=== PATIENT | female | born 1965 | race Caucasian/White ===

== ENCOUNTER → 2017-02-09 | Outpatient (CLI) | payer BC | END | disposition home or self-care (01) | LOC: LABWHC1 09:12 | PROVIDERS: ATTEND Obstetrics & Gynecology | DX: E34.9 Endocrine disorder, unspecified (principal); Z13.220 Encounter for screening for lipoid disorders; Z13.29 Encounter for screening for other suspected endocrine disorder; Z13.21 Encounter for screening for nutritional disorder | CPT/HCPCS: 36415; 80061; 82306; 83001; 83002; 84439; 84443 ==

== ENCOUNTER → 2017-03-12 | Outpatient (CLI) | payer BC ==
--- NOTE | 2017-03-12 16:45 | US ---
EXAMINATION TYPE: US transvaginal DATE OF EXAM: 03/12/2017 COMPARISON: NONE CLINICAL HISTORY: 51-year-old female with N83.20 Ovarian Cysts. TECHNIQUE: Transvaginal (TV) Date of LMP: 02/20/2017 FINDINGS: Uterus: Anteverted measuring 6.7 x 3.4 x 4.4 cm. There is myometrial heterogeneity that could reflec t diffuse small fibroid change. Endometrial Stripe: 0.2 cm, thin, within normal limits. Right Ovary: 1.9 x 1.1 x 2.1 cm Left Ovary: 1.9 x 1.4 x 1.7 cm No dominant masses seen. There may be a tiny 4 mm cyst on the left. Trace pelvic free fluid anterior to the uterus. No evident adnexal abnormality. IMPRESSION: 1. Thin endometrial stripe (2 mm), appropriate for postmenopausal status. 2. Small, postmenopausal ovaries. Tiny 4 mm cyst on the left. 3. Trace pelvic free fluid.
== END | disposition home or self-care (01) ==
LOC: RADUSWWP 13:34
PROVIDERS: ATTEND Obstetrics & Gynecology
DX: N83.202 Unspecified ovarian cyst, left side (principal); N83.312 Acquired atrophy of left ovary; Z78.0 Asymptomatic menopausal state
CPT/HCPCS: 76830

== ENCOUNTER → 2017-03-28 | Outpatient (CLI) | payer BC ==
--- NOTE | 2017-03-29 09:43 | MM ---
Reason for exam: screening (asymptomatic). Last mammogram was performed 4 years and 8 months ago. History: Patient has history of other cancer at age 42. Family history of breast cancer in 2 maternal aunts at age 50 and breast cancer in paternal grandmother at age 50. Physical Findings: A clinical breast exam by your physician is recommended on an annual basis and results should be correlated with mammographic findings. MG 3D Screening Mammo W/Cad Bilateral CC and MLO view(s) were taken. Prior study comparison: August 07, 2012, mammogram, performed at [facility]. August 08, 2011, mammogram, performed at [facility]. The breast tissue is heterogeneously dense. This may lower the sensitivity of mammography. No suspicious abnormality. No significant changes when compared with prior studies. ASSESSMENT: Negative, BI-RAD 1 RECOMMENDATION: Routine screening mammogram of both breasts in 1 year.
== END | disposition home or self-care (01) ==
LOC: RADMAMWWP 13:05
PROVIDERS: ATTEND Obstetrics & Gynecology
DX: Z12.31 Encounter for screening mammogram for malignant neoplasm of breast (principal)
CPT/HCPCS: 77063; 77067

== ENCOUNTER → 2018-06-24 | Outpatient (CLI) | payer BC ==
--- NOTE | 2018-06-25 11:22 | MM ---
Reason for exam: screening (asymptomatic). Last mammogram was performed 1 year and 3 months ago. History: Patient has history of other cancer at age 42. Family history of breast cancer in 2 maternal aunts at age 50 and breast cancer in paternal grandmother at age 50. Physical Findings: A clinical breast exam by your physician is recommended on an annual basis and results should be correlated with mammographic findings. MG 3D Screening Mammo W/Cad Bilateral CC and MLO view(s) were taken. XCCL view(s) were taken of the right breast. Prior study comparison: March 28, 2017, bilateral MG 3d screening mammo w/cad. August 07, 2012, mammogram, performed at [facility]. The breast tissue is heterogeneously dense. This may lower the sensitivity of mammography. There is no discrete abnormality. ASSESSMENT: Negative, BI-RAD 1 RECOMMENDATION: Routine screening mammogram of both breasts in 1 year.
== END | disposition home or self-care (01) ==
LOC: RADMAMWWP 09:51
PROVIDERS: ATTEND Family Medicine
DX: Z12.31 Encounter for screening mammogram for malignant neoplasm of breast (principal)
CPT/HCPCS: 77063; 77067

== ENCOUNTER → 2018-08-07 | Outpatient (CLI) | payer BC ==
--- NOTE | 2018-08-07 15:55 | US ---
EXAMINATION TYPE: US transvaginal DATE OF EXAM: 08/07/2018 COMPARISON: NONE CLINICAL HISTORY: N83.20 Ovarian Cyst. Ovarian cyst. TECHNIQUE: Transvaginal (TV). Date of LMP: 3 months ago. EXAM MEASUREMENTS: Uterus: 7.1 x 4.1 x 5.1 cm Endometrial Stripe: 0.6 cm Right Ovary: 2.6 x 1.7 x 2.6 cm Left Ovary: 2.4 x 1.4 x 1.4 cm 1. Uterus: Anteverted Heterogenous. 2. Endometrium: wnl 3. Right Ovary: wnl 4. Left Ovary: Anechoic area seen measuring 1.0 x .8 x .9cm. 5. Bilateral Adnexa: wnl 6. Posterior cul-de-sac: wnl IMPRESSION: No evidence of endometrial thickening in this patient with dysfunctional uterine bleeding . Physiologic dominant follicle of the left ovary.
== END ==
LOC: RADUSWWP 15:17
PROVIDERS: ATTEND Obstetrics & Gynecology
DX: N83.209 Unspecified ovarian cyst, unspecified side (principal)
CPT/HCPCS: 76830

== ENCOUNTER 2018-10-22 08:38 | Day surgery (SDC) | payer BC ==
[2018-10-17 14:30] VITALS: BMI 21.6
[~2018-10-22 08:38] MED LIST: LACTATED RINGERS 1,000 ML IV SCH; LIDOCAINE 1% 20 ML VIAL (10MG/ML) FOR IV START INTRADERMA PRN
[2018-10-22 09:19] VITALS: RESP 16; TEMP 98.5
[2018-10-22] MEDS ORDERED: LACTATED RINGERS 1,000 ML IV ONE (09:33)
[2018-10-22] MEDS ORDERED: LIDOCAINE 1% 20 ML VIAL (10MG/ML) FOR IV START INTRADERMA ONE (09:34)
[2018-10-22] MEDS ORDERED: PROPOFOL 10 MG/ML 20 ML VIAL IV ONE (09:43)
--- NOTE | 2018-10-22 10:01 | P.PCN ---
Date of Procedure: 10/22/18 Procedure(s) Performed: BRIEF HISTORY: Patient is a 53-year-old pleasant white female scheduled for an elective colonoscopy as a part of screening for colorectal neoplasia. PROCEDURE PERFORMED: Colonoscopy. PREOPERATIVE DIAGNOSIS: Screening for colon cancer. IV sedation per Anesthesia. PROCEDURE: After informed consent was obtained, the patient, was brought into the endoscopy unit. IV sedation was administered by Anesthesia under continuous monitoring. Digital rectal examination was normal. Initially the Olympus CF-160 flexible video colonoscope was then inserted in the rectum, gradually advanced into the cecum without any difficulty. Careful examination was performed as the scope was gradually being withdrawn. Ileocecal valve and the appendiceal orifice were visualized and appeared normal. Prep was excellent. Mucosa of the cecum, ascending colon, transverse colon, descending colon, sigmoid colon, and rectum appeared normal. Retroflexion was performed in the rectum and no lesions were seen. The patient tolerated the procedure well. IMPRESSION: Normal-appearing colon from rectum to cecum with no evidence of colorectal neoplasia. RECOMMENDATIONS: Findings of this examination were discussed with the patient as well as her family. She was advised to have a repeat screening colonoscopy in 10 years.
[2018-10-22 10:14] VITALS: BP 113/71; PULSE 73
== END 2018-10-22 11:01 | disposition home or self-care (01) ==
LOC: ORWHC2ENDO 08:38
PROVIDERS: ATTEND Internal Medicine Gastroenterology
DX: Z12.11 Encounter for screening for malignant neoplasm of colon (principal); E89.0 Postprocedural hypothyroidism; Z79.890 Hormone replacement therapy
CPT/HCPCS: 81025; J2704; G0121

== ENCOUNTER 2019-10-05 22:19 | Emergency (ER) | payer BC ==
[2019-10-05 22:53] LABS: Basophils % (A) 1 %; Eosinophils # (A) 0.2 k/uL (0-0.7); Eosinophils % (A) 4 %; HCT 41.8 % (34.0-46.0); HGB 13.9 gm/dL (11.4-16.0); Lymphocytes # (A) 2.8 k/uL (1.0-4.8); Lymphocytes % (A) 47 %; MCH 31.3 pg (25.0-35.0); MCHC 33.3 g/dL (31.0-37.0); MCV 94.1 fL (80.0-100.0); Mean Platelet Volume 7.4; Monocytes # (A) 0.3 k/uL (0-1.0); Monocytes % (A) 4 %; Neutrophils # (A) 2.6 k/uL (1.3-7.7); Neutrophils % (A) 43 %; Platelet Count 278 k/uL (150-450); RBC 4.44 m/uL (3.80-5.40); RDW 12.4 % (11.5-15.5)
[2019-10-05 23:00] LABS: Partial Thromboplastin Time 24.5 sec (22.0-30.0); Prothrombin Time 10.2 sec (9.0-12.0)
[2019-10-05 23:01] LABS: ALT 13 U/L (4-34); AST 15 U/L (14-36); African American GFR (CKD) >90 (>60 ml/min/1.73 sqM); Albumin 4.8 g/dL (3.5-5.0); Alkaline Phosphatase 62 U/L (38-126); Anion Gap 7 mmol/L; Blood Urea Nitrogen 19 mg/dL (7-17); Calcium 9.3 mg/dL (8.4-10.2); Carbon Dioxide 30 mmol/L (22-30); Chloride 101 mmol/L (98-107); Glucose 88 mg/dL (74-99); Non-African American GFR(CKD) >90 (>60 ml/min/1.73 sqM); Potassium 3.9 mmol/L (3.5-5.1); Sodium 138 mmol/L (137-145); Total Bilirubin 0.3 mg/dL (0.2-1.3); Total Protein 7.5 g/dL (6.3-8.2)
--- NOTE | 2019-10-05 23:02 | XR ---
EXAMINATION TYPE: XR chest 2V DATE OF EXAM: 10/05/2019 COMPARISON: NONE HISTORY: Chest pain TECHNIQUE: FINDINGS: Heart and mediastinum are normal. Lungs are clear. Diaphragm is normal. Bony thorax appears normal. IMPRESSION: Normal chest.
[2019-10-05 23:04] VITALS: RESP 18
--- NOTE | 2019-10-05 23:16 | ED ---
Chest Pain HPI - General Chief Complaint: Chest Pain Stated Complaint: Chest pain Source: patient, RN notes reviewed, old records reviewed Mode of arrival: ambulatory Limitations: no limitations - History of Present Illness Initial Comments: This is a 54-year-old female DF for evaluation ofsignificant medical history no high blood pressure no diabetes nonsmoker no significant family history of heart disease coming in for some burning chest pain rating to her back breathing for both shoulders episode lasted for 15 minutes will take her shower tonight resolved upon arrival. At this time patient has no complaints no recent illnesses been feeling well no fevers cough or congestion. MD Complaint: chest pain, other (burning in chest) -: hour(s) Onset: during rest (dusing shower) Pain Location: substernal, left chest Pain Radiation: RUE, LUE, back Severity: moderate Severity scale (1-10): 4 Quality: sharp Consistency: now resolved Improves With: nothing Worsens With: nothing Anginal Symptoms: nausea Other Symptoms: acid taste in mouth Treatments Prior to Arrival: none - Related Data Home Medications Medication Instructions Recorded Confirmed Levothyroxine Sodium [Synthroid] 112 mcg PO DAILY 08/03/15 10/17/18 Psyllium Husk [Metamucil] 0.4 gm PO DAILY PRN 10/17/18 10/22/18 Allergies Allergy/AdvReac Type Severity Reaction Status Date / Time No Known Allergies Allergy Verified 10/05/19 22:26 Review of Systems ROS Statement: Those systems with pertinent positive or pertinent negative responses have been documented in the HPI. ROS Other: All systems not noted in ROS Statement are negative. EKG Findings - EKG Comments: EKG Findings:: EKG is sinus a 62 RI 136 QRS 88 QTc 410 Past Medical History Past Medical History: Cancer, Thyroid Disorder Additional Past Medical History / Comment(s): hx. thyroid cancer 2008- radioactive iodine tx. after surg. History of Any Multi-Drug Resistant Organisms: None Reported Past Surgical History: Tonsillectomy Additional Past Surgical History / Comment(s): total thyroidectomy Past Anesthesia/Blood Transfusion Reactions: No Reported Reaction Past Psychological History: No Psychological Hx Reported Smoking Status: Former smoker Past Alcohol Use History: None Reported Past Drug Use History: None Reported - Past Family History Mother Family Medical History: No Reported History General Exam Limitations: no limitations General appearance: alert, in no apparent distress Head exam: Present: atraumatic, normocephalic, normal inspection Eye exam: Present: normal appearance, PERRL, EOMI. Absent: scleral icterus, conjunctival injection, periorbital swelling ENT exam: Present: normal exam, mucous membranes moist Neck exam: Present: normal inspection. Absent: tenderness, meningismus, lymphadenopathy Respiratory exam: Present: normal lung sounds bilaterally. Absent: respiratory distress, wheezes, rales, rhonchi, stridor Cardiovascular Exam: Present: regular rate, normal rhythm, normal heart sounds. Absent: systolic murmur, diastolic murmur, rubs, gallop, clicks GI/Abdominal exam: Present: soft, normal bowel sounds. Absent: distended, tenderness, guarding, rebound, rigid Extremities exam: Present: normal inspection, full ROM, normal capillary refill. Absent: tenderness, pedal edema, joint swelling, calf tenderness Back exam: Present: normal inspection Neurological exam: Present: alert, oriented X3, CN II-XII intact Psychiatric exam: Present: normal affect, normal mood Skin exam: Present: warm, dry, intact, normal color. Absent: rash Course Vital Signs 10/05/19 10/05/19 10/05/19 22:22 22:44 23:03 Temperature 98.5 F Pulse Rate 68 57 L Respiratory 20 16 18 Rate Blood Pressure 160/90 110/70 O2 Sat by Pulse 98 97 Oximetry - Reevaluation(s) Reevaluation #1: 10/06/19 01:17 Medical record is reviewed Reevaluation #2: 10/06/19 01:17 Patient can use to feel well she did have one episode of burning substernal symptoms here in the ER but that also immediately resolved Reevaluation #3: 10/06/19 01:17 Spoke with patient regarding results and questions are answered Chest Pain MDM - MDM 54 female with atypical chest pain burning type chest pain to episodic events that were self-limiting, test here in the ER normal including chest x-ray which is negative and CT of chest is negative patient can be discharged home Disposition Clinical Impression: Atypical chest pain, Chest pain Disposition: HOME SELF-CARE Condition: Good Instructions (If sedation given, give patient instructions): Chest Pain (ED) Is patient prescribed a controlled substance at d/c from ED?: No Referrals: Tyra Augustine DO [Primary Care Provider] - 1-2 days
[2019-10-06] MEDS ORDERED: MAG HYDROX/AL HYDROX/SIMETH 30 ML, HYOSCYAMINE ELIXIR 10 ML PO STA ×2 (00:20)
--- NOTE | 2019-10-06 01:02 | CT ---
EXAMINATION TYPE: CT angio chest DATE OF EXAM: 10/06/2019 COMPARISON: None HISTORY: Chest pain CT DLP: 226.1 mGycm Automated exposure control for dose reduction was used. CONTRAST: Performed with IV Contrast, patient injected with 80 mL of Isovue 370. There are 3-D post processed images. The lungs are clear of consolidation. There is minimal pulmonary scarring at the lung apices. There i s no evidence of a pulmonary mass. There is no pleural effusion. There is no pericardial effusion. Th ere is no mediastinal adenopathy. Thoracic aorta appears normal. There are no hilar masses. There is normal contrast opacification of the pulmonary arteries. There are no filling defects. Thora cic vertebra have normal spacing and alignment. Posterior elements are intact. Sternum is intact. The ribs appear intact. There is irregular 3.5 cm hypodense area in the anterior superior right lobe of the liver. There is s imilar smaller 2 cm focus posterior right lobe of the liver. IMPRESSION: No evidence of pulmonary embolism. Hypodense liver lesions are nonspecific. Follow-up recommended. Ultrasound would be helpful for furth er evaluation if clinically indicated.
[2019-10-06 01:27] VITALS: BP 111/71; PULSE 71; TEMP 97.4
== END 2019-10-06 01:27 | disposition home or self-care (01) ==
LOC: EC 22:19
DX: R07.89 Other chest pain (principal); Z79.890 Hormone replacement therapy; Z87.891 Personal history of nicotine dependence; Z85.850 Personal history of malignant neoplasm of thyroid; Z90.89 Acquired absence of other organs
CPT/HCPCS: 36415; 71046; 71275; 80053; 83690; 83735; 83880; 84484; 85025; 85610; 85730; 93005; 99285

== ENCOUNTER → 2020-01-12 | Outpatient (CLI) | payer BC | END | disposition home or self-care (01) | LOC: LABWHC1 09:24 | PROVIDERS: ATTEND Family Medicine | DX: Z20.828 Contact with and (suspected) exposure to other viral communicable diseases (principal) | CPT/HCPCS: U0003; C9803 ==

== ENCOUNTER → 2020-02-04 | Outpatient (CLI) | payer BC | END | disposition home or self-care (01) | LOC: LABWHC1 12:39 | PROVIDERS: ATTEND Family Medicine | DX: R43.2 Parageusia (principal) | CPT/HCPCS: U0003; C9803 ==

== ENCOUNTER → 2022-04-05 | Outpatient (CLI) | payer BC ==
[2022-04-05 15:51] LABS: Chol/HDL Ratio 3.89 Ratio; LDL Cholesterol,Calculated 165.9 mg/dL (0.0-131.0); VLDL Calculation 13.06 mg/dL (5.00-40.00)
--- NOTE | 2022-04-06 08:30 | MM ---
Reason for Exam: Screening (asymptomatic). Last mammogram was performed 3 year(s) and 9 month(s) ago. Patient History: Menarche at age 12. First Full-Term at age 30. Late child-bearing (after 30). Postmenopausal. Other cancer, age 42. Paternal grandmother had breast cancer, age 50. Maternal aunt had breast cancer, age 50. Maternal aunt had breast cancer, age 50. Risk Values: Nettie 5 year model risk: 1.7%. NCI Lifetime model risk: 10.9%. Prior Study Comparison: 08/07/2012 Screening Mammogram, [facility]. 03/28/2017 Bilateral Screening Mammogram, [facility]. 06/24/2018 Bilateral Screening Mammogram, [facility]. Tissue Density: The breast tissue is heterogeneously dense. This may lower the sensitivity of mammography. Findings: Analyzed By CAD. There is no suspicious group of microcalcifications or new suspicious mass in either breast. Overall Assessment: Negative, BI-RAD 1 Management: Screening Mammogram of both breasts in 1 year. A clinical breast exam by your physician is recommended on an annual basis and results should be correlated with mammographic findings. Electronically signed and approved by: Norman Bernardo D.O.
== END | disposition home or self-care (01) ==
LOC: RADMAMWWP 07:20
PROVIDERS: ATTEND Obstetrics & Gynecology
DX: Z12.31 Encounter for screening mammogram for malignant neoplasm of breast (principal); Z13.220 Encounter for screening for lipoid disorders; Z13.29 Encounter for screening for other suspected endocrine disorder; Z78.0 Asymptomatic menopausal state; Z80.3 Family history of malignant neoplasm of breast
CPT/HCPCS: 36415; 77063; 77067; 80061; 82306; 84439; 84443

== ENCOUNTER → 2023-05-09 | Outpatient (CLI) | payer BC ==
--- NOTE | 2023-05-09 20:56 | BD ---
EXAMINATION TYPE: Axial Bone Density DATE OF EXAM: 05/09/2023 CLINICAL HISTORY: 58 years old Female. ICD-10 CODE: ; Z78.0 ASYMPTOMATIC MENOPAUSAL Height: 65 Weight: 128.8 FRAX RISK QUESTIONS: Alcohol (3 or more units per day): no Family History (Parent hip fracture): no Glucocorticoids (More than 3mos): no (Ex: prednisone, prednisolone, methylprednisolone, dexamethasone, and hydrocortisone). History of Fracture in Adulthood: no Secondary Osteoporosis: 1. Type 1 Diabetes: no 2. Hyperthyroidism: no 3. Menopause before 45: no 4. Malnutrition: no 5. Chronic liver disease: no Rheumatoid Arthritis: no Current Tobacco Use: no RISK FACTORS HISTORY OF: Surgery to Spine/Hip(right/left)/Wrist (right/left): no MEDICATIONS: Thyroid Medications: levothyroxine How Long: since 2008 EXAM MEASUREMENTS: Bone mineral densitometry was performed using the [employer] System. Bone mineral density as measured about the Lumbar spine is: ----- L1-L4(G/cm2): 1.060 T Score Values are as follows: ----- L1: -0.9 ----- L2: -1.3 ----- L3: -0.6 ----- L4: -1.3 ----- L1-L4: -1.0 Z Score Values are as follows: ----- L1: 0.4 ----- L2: 0.0 ----- L3: 0.6 ----- L4: -0.1 ----- L1-L4: 0.2 Bone mineral density : baseline Bone mineral density about the R hip (g/cm2): 0.884 Bone mineral density about the L hip (g/cm2): 0.953 T Score values are as follows: -----R Neck: -1.3 -----L Neck: -1.1 -----R Total: -1.0 -----L Total: -0.4 Z Score values are as follows: -----R Neck: 0.0 -----L Neck: 0.2 -----R Total: 0.0 -----L Total: 0.5 Bone mineral density : baseline FRAX%s: The graph provided illustrates a 6.5% chance for a major osteoporotic fx and a 0.5% chance fo r the hips probability for fx in 10 years time. IMPRESSION: Osteopenia (T Score between -2.5 and -1). There is slightly increased risk of fracture and the patient may be considered for treatment. Re-Screen 2-5 years. NOTE: T-SCORE=SD OF THE YOUNG ADULT MEAN.
--- NOTE | 2023-05-10 10:46 | MM ---
Reason for Exam: Screening (asymptomatic). Last mammogram was performed 1 year(s) and 1 month(s) ago. Patient History: Menarche at age 12. First Full-Term at age 30. Late child-bearing (after 30). Postmenopausal. Other cancer, age 42. Paternal grandmother had breast cancer, age 50. Maternal aunt had breast cancer, age 50. Maternal aunt had breast cancer, age 50. Paternal aunt had breast cancer. Risk Values: Nettie 5 year model risk: 1.8%. NCI Lifetime model risk: 10.5%. Prior Study Comparison: 03/28/2017 Bilateral Screening Mammogram, [facility]. 06/24/2018 Bilateral Screening Mammogram, [facility]. 04/05/2022 Bilateral MG 3D screening mammo w/cad, [facility]. Tissue Density: The breast tissue is heterogeneously dense. This may lower the sensitivity of mammography. Findings: Analyzed By CAD. There is no suspicious group of microcalcifications or new suspicious mass in either breast. Overall Assessment: Benign, BI-RAD 2 Management: Screening Mammogram of both breasts in 1 year. . Patient should continue monthly self-breast exams. A clinical breast exam by your physician is recommended on an annual basis. This exam should not preclude additional follow-up of suspicious palpable abnormalities. Note on Nettie scores and lifetime risk: 1. A Nettie score greater than 3% is considered moderate risk. If this is the case, consider specialist referral to assess eligibility for a risk reducing agent. 2. If overall lifetime risk for the development of breast cancer is 20% or higher, the patient may qualify for future screening with alternating mammogram and breast MRI. Electronically signed and approved by: Augustus Toro M.D. Radiologis
== END | disposition home or self-care (01) ==
LOC: RADMAMWWP 14:51
PROVIDERS: ATTEND Obstetrics & Gynecology
DX: Z12.31 Encounter for screening mammogram for malignant neoplasm of breast (principal); M85.89 Other specified disorders of bone density and structure, multiple sites; Z78.0 Asymptomatic menopausal state; Z80.3 Family history of malignant neoplasm of breast
CPT/HCPCS: 77063; 77067; 77080

== ENCOUNTER → 2023-05-09 | Outpatient (CLI) | payer BC ==
--- NOTE | 2023-05-10 13:26 | US ---
EXAMINATION TYPE: US transvaginal DATE OF EXAM: 05/09/2023 COMPARISON: 2018 and 2016 CLINICAL INDICATION: Female, 58 years old with history of N83.02 FOLLICULAR CYST OF LEFT OVARY; TECHNIQUE: Transvaginal (TV). Date of LMP: Over 5 years ago EXAM MEASUREMENTS: Uterus: 5.7 x 2.9 x 3.5 cm Endometrial Stripe: 0.27 cm Right Ovary: 2.2 x 1.1 x 2.0 cm 1. Uterus: Anteverted and otherwise wnl 2. Endometrium: wnl 3. Right Ovary: Appears wnl 4. Left Ovary: Obscured by overlying bowel gas 5. Bilateral Adnexa: Excessive bowel gas noted left adnexa. In addition, there is prominent vascular ity in the left adnexa. 6. Posterior cul-de-sac: wnl IMPRESSION: 1. Thin endometrial stripe at 2.7 mm. 2. Bowel gas in the left adnexa obscures the ovary. 3. However, we do note extensive vascularity in the left adnexa. This is a nonspecific finding but ca n be seen in the setting of pelvic congestion syndrome.
== END | disposition home or self-care (01) ==
LOC: RADUSWWP 14:54
PROVIDERS: ATTEND Obstetrics & Gynecology
DX: N83.02 Follicular cyst of left ovary (principal)
CPT/HCPCS: 76830